=== PATIENT | male | born 1970 | race American Indian/Alaskan Native ===

== ENCOUNTER 2017-09-08 12:01 | Emergency (ER) | payer MEDICAID ==
[2017-09-08 12:25] VITALS: BP 127/73
[2017-09-08] MEDS ORDERED: TORADOL IM ONE (13:33)
[2017-09-08] MEDS ORDERED: FLEXERIL PO ONE (13:33)
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
== END 2017-09-08 15:26 | disposition home or self-care (01) ==
LOC: ED 12:01
DX: S39.012A Strain of muscle, fascia and tendon of lower back, initial encounter (principal); F17.200 Nicotine dependence, unspecified, uncomplicated; X50.9XXA Other and unspecified overexertion or strenuous movements or postures, initial encounter; Y93.89 Activity, other specified; Y92.89 Other specified places as the place of occurrence of the external cause; Y99.8 Other external cause status
CPT/HCPCS: 73590; 96372; 99283; J1885